=== PATIENT | female | born 1995 | race Caucasian/White ===

== ENCOUNTER 2018-12-06 10:45 | Emergency (ER) | payer OTHER, SELFPAY ==
[2018-12-06 10:57] VITALS: BP 112/77; PULSE 80; RESP 12; TEMP 36.6; O2SAT 100
[2018-12-06 11:27] LABS: Bacteria Urine Many (>30); RBC Urine 0-1/HPF (0-5/HPF); Squamous Epithelial Cell Urine 10-30 /HPF; WBC Urine 10-30/HPF (0-5/HPF)
--- NOTE | 2018-12-06 11:27 | ED_ITS ---
HPI - Nausea/Vomiting/Diarrhea General Chief complaint: Nausea/Vomiting/Diarrhea Stated complaint: NAUSEA, DIZZY Time Seen by Provider: 12/06/18 11:02 Source: patient Mode of arrival: ambulatory Limitations: no limitations History of Present Illness HPI Narrative: This is a 23-year-old female comes with complaint of dizziness. Patient states that she has felt a little bit nauseated this morning following that she started to feel like the room was sort of spinning. Patient states she has had this once before when she was really sick and had vomiting and diarrhea for several days in a row and had was unable to eat anything for several days. Patient states she has not had any vomiting, she has not had any diarrhea. She does have a headache, she does have any vision changes. She states movement of her head makes the symptoms worse. She states that she is not having any new weakness, numbness, difficulty with speech or movement. Patient denies any other symptoms currently. Related Data Previous Rx's Medication Instructions Recorded meclizine 25 mg PO TID #10 tab 12/06/18 Review of Systems Review of Systems ROS Unobtainable: All systems reviewed & are unremarkable except as noted in HPI and below Constitutional Denies chills, Denies fever(s), Denies headache(s) and Denies malaise Eyes Denies change in vision ENT Ears, Nose, Mouth, and Throat: Reports as per HPI, Reports vertigo, Denies otalgia, Denies headache(s), Denies nasal congestion, Denies neck pain and Denies other (facial droop) Cardiovascular Denies chest pain, Denies diaphoresis, Denies syncope, Denies irregular heart rhythm, Denies lightheadedness, Denies palpitations, Denies dyspnea, Denies dyspnea on exertion and Denies orthopnea Respiratory Denies change in phlegm color, Denies chest congestion, Denies cough, Denies dyspnea, Denies dyspnea on exertion and Denies wheezing Gastrointestinal Gastrointestinal: Denies abdominal pain, Denies change in bowel habits, Denies diarrhea, Denies nausea and Denies vomiting Genitourinary Denies hematuria, Denies flank pain, Denies urinary incontinence and Denies urinary urgency Musculoskeletal Denies neck pain Neurologic Reports vertigo, Denies syncope and Denies headache(s) Endocrine Denies palpitations Allergic/Immunologic Denies wheezing Exam Narrative Exam Narrative: GEN: well nourished, well appearing female, alert and oriented x 3, patient appears to be in mild distress. HEENT: Atraumatic, pupils are equal round reactive to light, extraocular movements are intact, no nystagmus appreciated on exam, nares are clear, TMs are clear with no fluid, there is no conjunctival pallor. Throat is clear without any exudates, erythema, tonsillar enlargement or uvular deviation, no facial droop. [place] on a causes patient's symptoms but no rotatory nystagmus. HEART: Regular rate and rhythm without murmur, clicks, rubs. Pulses are equal in upper and lower extremities LUNGS:Lungs clear to auscultation, no wheezes, rales, crackles, chest moves symmetrically ABD:bowel sounds normal, soft, non-tender, no guarding, rebound, rigidity, no masses noted, no hepatosplenomegaly MSCL: Non-tender, no muscle atrophy, muscles strength 5/5 upper and lower extremities, full range of motion, normal gait NEURO:CN 2-12 intact, sensation normal, reflexes 2/4 upper and lower extremities. finger nose finger test normal, heel galeas test normal Initial Vital Signs Initial Vital Signs: Vital Signs Temperature 97.9 F 12/06/18 10:57 Pulse Rate 80 12/06/18 10:57 Respiratory Rate 12 12/06/18 10:57 Blood Pressure 112/77 12/06/18 10:57 Pulse Oximetry 100 12/06/18 10:57 Course Orders Ordered: ED Orders 12/06/18 11:10 Urine Microscopic Stat Discontinued Medications Ondansetron HCl (Zofran Odt) 4 mg SL NOW ONE Stop: 12/06/18 11:56 Last Admin: 12/06/18 12:18 Dose: 4 mg Vital Signs - 8 hr 12/06/18 10:57 12/06/18 11:30 12/06/18 12:00 Temperature 97.9 F Pulse Rate 80 78 77 Respiratory Rate 12 18 11 L Blood Pressure 112/77 Blood Pressure [Left Arm] 118/80 119/77 Pulse Oximetry 100 100 100 MDM - Nausea/Vomiting/Diarrhea Lab Data Attestation: I reviewed the patient's lab results. Lab Results 12/06/18 Range/Units 11:10 Urine RBC 0-1/hpf (0-5/HPF) Urine WBC 10-30/hpf H (0-5/HPF) Ur Squamous Epith Cells 10-30 /hpf H Urine Bacteria Many (>30) H (None) Urine Mucus 2+ H (Negative) Ur Culture Indicated? Culture not indicate Micro UA Comment Point of Care Testing Test Results Negative Urine Dip Bedside Urine Glucose Negative Bedside Urine Bilirubin - Negative Bedside Urine Ketone - Negative Urine Specific [place] 1.030 Bedside Urine Occult Blood - Negative Bedside Urine pH 6.0 Bedside Urine Protein - Negative Bedside Urine Urobilinogen +/- 1mg Bedside Urine Nitrite - Negative Bedside Urine Leukocytes ++ 125 Esterase MDM Narrative Medical decision making narrative: I discussed the patient's findings. No acute neurologic changes that are concerning or unwarranted head CT or other further evaluation at this time. We did discuss that she should try some meclizine I did give her referral for ENT and/or her primary care to follow up if her symptoms are not improving. We did discuss signs and symptoms to watch for an abnormal findings that showed prompt her to return emergently. Discharge Plan Departure Patient Disposition: Home Clinical Impression: Vertigo Discharge Date/Time: 12/06/18 12:44 Interventions: ED Discharge Assessment Last Done: 12/06/18 12:43 Instructions: DI for Vertigo Activity Restrictions/Additional Instructions: Follow-up for recheck with your primary care provider or ENT the ears, nose, throat specialty physicians in the next 2-3 days if you're not having any improvement in symptoms. Referral is below. You may take meclizine 1-2 tablets every 8 hr as needed for symptoms. This medication can make you feel sleepy so do not drive, perform hazards activities or make any major decisions while taking it. Return to the emergency department for sudden severe headaches, vision changes, new weakness, numbness, dizziness or vertigo like symptoms that are rapidly worsening or make it difficult for you to walk safely. Do not gauge in work that requires balance, that is at heights or where you have risk of falling. Prescriptions: New meclizine 25 mg tablet 25 mg PO TID Qty: 10 RF: 0 Referrals: Tyler Amezquita MD [Physician] - Stand Alone Forms: Work Release Note
[2018-12-06 11:28] LABS: Mucus Urine 2+ (Negative)
[2018-12-06 11:30] VITALS: BP 118/80; PULSE 78; RESP 18; O2SAT 100
--- NOTE | 2018-12-06 11:37 | PC.NURSE ---
pt states she is dizzy, and not feeling well since today
[2018-12-06 12:00] VITALS: BP 119/77; PULSE 77; RESP 11; O2SAT 100
[2018-12-06] MEDS: ONDANSETRON 4 MG ODT SL (12:18)
== END 2018-12-06 12:44 | disposition home or self-care (01) ==
PROVIDERS: Emergency Provider Emergency Medicine
DX: R42 Dizziness and giddiness (principal)
CPT/HCPCS: 81003; 81015; 81025; 99282; 99283

== ENCOUNTER 2019-01-17 00:53 | Emergency (ER) | payer OTHER, SELFPAY ==
[2019-01-17 01:03] VITALS: BP 113/73; PULSE 78; RESP 16; TEMP 36.4; O2SAT 100; BMI 21.9
[2019-01-17] MEDS: SODIUM CHLORIDE 0.9% 500 ML 1000 ML IV (01:34)
[2019-01-17 01:36] LABS: Add Manual Diff / Slide Review NO; Basophils Absolute Auto 100 /uL (0-100); Basophils Percent Auto 0.9 % (0-2); Eosinophils Absolute Auto 100 /uL (0-450); Eosinophils Percent Auto 1.6 % (2-4); Hematocrit 41.4 % (36-46); Hemoglobin 14.2 g/dL (12.0-16.0); Lymphocytes Absolute Auto 1900 /uL (1100-4500); Lymphocytes Percent Auto 33.8 % (25-40); Mean Corpuscular HGB Conc 34.2 % (30-36); Mean Corpuscular Hemoglobin 31.1 PG (26-34); Mean Corpuscular Volume 90.8 fL (80-100); Monocytes Absolute Auto 400 /uL (0-900); Monocytes Percent Auto 7.1 % (3-14); Neutrophils Absolute Auto 3200 /uL (1500-7000); Neutrophils Percent Auto 56.6 % (50-75); Platelet Count 246 X10^3/uL (150-400); Red Blood Cell Count 4.56 X10^6/uL (4.0-5.2); Red Cell Distribution Width 12.2 % (11.6-14.8); White Blood Cell Count 5.6 X10^3/uL (4.5-11.0)
[2019-01-17 01:39] LABS: INR 1.1 (0.9-1.3); Prothrombin Time 12.2 SECONDS (10.1-12.7)
[2019-01-17 01:44] LABS: Alanine Aminotransferase 24 IU/L (9-52); Albumin 4.6 g/dL (3.5-5.0); Albumin Globulin Ratio 1.4 (1.0-2.8); Alkaline Phosphatase 65 U/L (38-126); Aspartate Aminotransferase 19 IU/L (14-36); BUN Creatinine Ratio 13.8 (6-22); Bilirubin Total 0.3 mg/dL (0.2-1.3); Blood Urea Nitrogen 11 mg/dL (7-17); Calcium 9.1 mg/dL (8.4-10.2); Carbon Dioxide 24 mmol/L (22-32); Chloride 107 mmol/L (98-107); Estimated Glomerular Filt Rate > 60.0 mL/min (>60); Globulin 3.4 g/dL (1.7-4.1); Glucose 92 mg/dL (70-100); HEMOLYSIS < 15 (0-50); Lipase 46 U/L (23-300); Sodium 142 mmol/L (137-145)
[2019-01-17 01:45] LABS: Lactate (Lactic Acid) 0.6 mmol/L (0.7-2.1)
--- NOTE | 2019-01-17 01:54 | ED.ABDPAIN ---
HPI - Abdominal Pain General Chief Complaint: Abdominal Pain Stated Complaint: nausea,diarrhea x5 days Time Seen by Provider: 01/17/19 00:55 Source: patient Mode of arrival: ambulatory Limitations: no limitations History of Present Illness HPI narrative: 23-year-old female nonsmoker with history of migraines and fungal infection on left great toe presents to the emergency department with 7 days of increasing frequency of loose stools and some right sided abdominal pain. She is nauseated but denies vomiting. She is not dizzy nor weak or lightheaded. She denies any chest pain or shortness of breath. She is taking to been a fine for this fungal infection and has concerns about liver involvement. She has had no fever or chills. She denies recent travel or antibiotic use. She denies exposure to ill persons. MD complaint: abdominal pain Onset (ago): day(s) Pain Consistency: intermittent Location: R flank Severity: mild Quality: cramping and aching Radiation: none Migration to: no migration Relieving factors: nothing Exacerbating factors: nothing Associated symptoms: nausea and diarrhea Related Data Previous Rx's Medication Instructions Recorded meclizine 25 mg PO TID #10 tab 12/06/18 ondansetron 4 mg PO TID-QID PRN #10 tab 01/17/19 Allergies Allergy/AdvReac Type Severity Reaction Status Date / Time No Known Drug Allergies Allergy Verified 01/17/19 01:06 Review of Systems Constitutional Denies chills, Denies fever(s), Denies lethargy and Denies weakness Eyes Denies change in vision, Denies eye discharge, Denies irritation and Denies loss of vision ENT Ears, Nose, Mouth, and Throat: Denies change in voice, Denies neck pain and Denies sore throat Cardiovascular Denies chest pain, Denies irregular heart rhythm, Denies lightheadedness, Denies palpitations, Denies dyspnea, Denies dyspnea on exertion and Denies orthopnea Respiratory Denies cough, Denies dyspnea, Denies dyspnea on exertion and Denies wheezing Gastrointestinal Gastrointestinal: Denies abdominal pain, Denies change in bowel habits, Reports diarrhea, Reports nausea and Denies vomiting Genitourinary Denies hematuria, Denies flank pain, Denies urinary incontinence and Denies urinary urgency Musculoskeletal Denies neck pain Integumentary/Breasts Denies pruritus, Denies erythema, Denies rash and Denies wounds Neurologic Denies confusion, Denies loss of vision and Denies weakness Psychiatric Denies anxiety, Denies confusion, Denies depression, Denies homicidal ideation and Denies suicidal ideation Endocrine Denies palpitations Hematologic/Lymphatic Denies easy bruising Allergic/Immunologic Denies wheezing PFSH Social History Smoking Status: Current every day smoker Social History Smoking Status: Current every day smoker Exam Narrative Exam Narrative: GENERAL: 23-year-old female is well-developed and in no obvious or significant distress HEAD: Atraumatic. Normocephalic. No temporal or scalp tenderness. EYES: Pupils equal round and reactive. Extraocular motions intact. No scleral icterus. No injection or drainage. ENT: Nose without bleeding, purulent drainage or septal hematoma. Throat without erythema, tonsillar hypertrophy or exudate. Uvula midline. Airway patent. NECK: Trachea midline. No JVD or lymphadenopathy. Supple, nontender, no meningeal signs. CARDIOVASCULAR: Regular rate and rhythm without murmurs, gallops, or rubs. RESPIRATORY: Clear to auscultation. Breath sounds equal bilaterally. No wheezes, rales, or rhonchi. GASTROINTESTINAL: Abdomen soft, mild R sided tenderness, nondistended. No hepato-splenomegaly, or palpable masses. No guarding. EXTREMITIES: No clubbing, cyanosis, or edema. No joint tenderness, effusion, or edema noted. BACK: Nontender without deformity or crepitance. No flank tenderness. NEURO: AOx3. SKIN: No rash or erythema. Initial Vital Signs Initial Vital Signs: Vital Signs Temperature 97.5 F L 01/17/19 01:03 Pulse Rate 78 01/17/19 01:03 Respiratory Rate 16 01/17/19 01:03 Blood Pressure 113/73 01/17/19 01:03 Pulse Oximetry 100 01/17/19 01:03 Course Orders Ordered: ED Orders 01/17/19 01:24 Complete Blood Count AUTO DIFF Stat Comprehensive Metabolic Panel Stat Lactate (Lactic Acid) Stat Lipase Stat Prothrombin Time INR Stat 01/17/19 02:45 Urine Culture Stat Urine Microscopic Stat Discontinued Medications Al Hydrox/Mg Hydrox/Simethicone 20 ml/ Lidocaine HCl 15 ml 0 ml PO NOW ONE Stop: 01/17/19 02:31 Last Admin: 01/17/19 04:18 Dose: 35 ml Sodium Chloride (Normal Saline 0.9%) 500 mls @ 1,000 mls/hr IV BOLUS ONE Stop: 01/17/19 01:36 Last Infusion: 01/17/19 02:35 Dose: 0 mls/hr Infusion: 01/17/19 02:35 Dose: 0 mls/hr Admin: 01/17/19 01:34 Dose: 1,000 mls/hr Sodium Chloride (Normal Saline 0.9%) 1,000 mls @ 1,000 mls/hr IV BOLUS ONE Stop: 01/17/19 03:29 Last Infusion: 01/17/19 04:21 Dose: 0 mls/hr Admin: 01/17/19 02:35 Dose: 1,000 mls/hr Ondansetron HCl (Zofran) 4 mg IV Q4HR PRN PRN Reason: Nausea And Vomiting Last Admin: 01/17/19 02:36 Dose: 4 mg Pantoprazole Sodium (Protonix) 40 mg IV NOW ONE Stop: 01/17/19 02:31 Last Admin: 01/17/19 02:36 Dose: 40 mg Vital Signs - 8 hr 01/17/19 01:03 01/17/19 02:58 01/17/19 04:02 Temperature 97.5 F L Pulse Rate 78 77 73 Respiratory Rate 16 15 Blood Pressure 113/73 Blood Pressure [Left Arm] 105/67 108/61 Pulse Oximetry 100 100 100 01/17/19 04:41 Temperature 97.6 F Pulse Rate 74 Respiratory Rate 14 Blood Pressure 100/59 L Blood Pressure [Left Arm] Pulse Oximetry 100 MDM - Abdominal Pain Lab Data Result diagrams: 01/17/19 01:24 01/17/19 01:24 Lab Results 01/17/19 01/17/19 01/17/19 Range/Units 01:24 01:24 01:24 WBC 5.6 (4.5-11.0) X10^3/uL RBC 4.56 (4.0-5.2) X10^6/uL Hgb 14.2 (12.0-16.0) g/dL Hct 41.4 (36-46) % MCV 90.8 (80-100) fL MCH 31.1 (26-34) PG MCHC 34.2 (30-36) % RDW 12.2 (11.6-14.8) % Plt Count 246 (150-400) X10^3/uL Neut % (Auto) 56.6 (50-75) % Lymph % (Auto) 33.8 (25-40) % [place] % (Auto) 7.1 (3-14) % Eos % (Auto) 1.6 L (2-4) % Baso % (Auto) 0.9 (0-2) % Neut # (Auto) 3200 (0705-5930) /uL Lymph # (Auto) 1900 (5714-7664) /uL [place] # (Auto) 400 (0-900) /uL Eos # (Auto) 100 (0-450) /uL Baso # (Auto) 100 (0-100) /uL PT 12.2 (10.1-12.7) SECONDS INR 1.1 (0.9-1.3) Sodium 142 (137-145) mmol/L Potassium 4.0 (3.4-5.1) mmol/L Chloride 107 (98-107) mmol/L Carbon Dioxide 24 (22-32) mmol/L BUN 11 (7-17) mg/dL Creatinine 0.80 (0.52-1.04) mg/dL Estimated GFR > 60.0 (>60) mL/min BUN/Creatinine Ratio 13.8 (6-22) Glucose 92 (70-100) mg/dL Lactate (0.7-2.1) mmol/L Calcium 9.1 (8.4-10.2) mg/dL Total Bilirubin 0.3 (0.2-1.3) mg/dL AST 19 (14-36) IU/L ALT 24 (9-52) IU/L Alkaline Phosphatase 65 (38-126) U/L Total Protein 8.0 (6.3-8.2) g/dL Albumin 4.6 (3.5-5.0) g/dL Globulin 3.4 (1.7-4.1) g/dL Albumin/Globulin Ratio 1.4 (1.0-2.8) Lipase 46 (23-300) U/L Urine RBC (0-5/HPF) Urine WBC (0-5/HPF) Ur Squamous Epith Cells Urine Bacteria (None) Urine Mucus (Negative) Ur Culture Indicated? 01/17/19 01/17/19 Range/Units 01:24 02:45 WBC (4.5-11.0) X10^3/uL RBC (4.0-5.2) X10^6/uL Hgb (12.0-16.0) g/dL Hct (36-46) % MCV (80-100) fL MCH (26-34) PG MCHC (30-36) % RDW (11.6-14.8) % Plt Count (150-400) X10^3/uL Neut % (Auto) (50-75) % Lymph % (Auto) (25-40) % [place] % (Auto) (3-14) % Eos % (Auto) (2-4) % Baso % (Auto) (0-2) % Neut # (Auto) (6541-8654) /uL Lymph # (Auto) (9720-6431) /uL [place] # (Auto) (0-900) /uL Eos # (Auto) (0-450) /uL Baso # (Auto) (0-100) /uL PT (10.1-12.7) SECONDS INR (0.9-1.3) Sodium (137-145) mmol/L Potassium (3.4-5.1) mmol/L Chloride (98-107) mmol/L Carbon Dioxide (22-32) mmol/L BUN (7-17) mg/dL Creatinine (0.52-1.04) mg/dL Estimated GFR (>60) mL/min BUN/Creatinine Ratio (6-22) Glucose (70-100) mg/dL Lactate 0.6 L (0.7-2.1) mmol/L Calcium (8.4-10.2) mg/dL Total Bilirubin (0.2-1.3) mg/dL AST (14-36) IU/L ALT (9-52) IU/L Alkaline Phosphatase (38-126) U/L Total Protein (6.3-8.2) g/dL Albumin (3.5-5.0) g/dL Globulin (1.7-4.1) g/dL Albumin/Globulin Ratio (1.0-2.8) Lipase (23-300) U/L Urine RBC None seen (0-5/HPF) Urine WBC 1-5/hpf (0-5/HPF) Ur Squamous Epith Cells 1-5 /hpf D Urine Bacteria Moderate (10-30) H (None) Urine Mucus 2+ H (Negative) Ur Culture Indicated? Specimen cultured Point of care testing: Urine Dip Bedside Urine Glucose Negative Bedside Urine Bilirubin + 1 Bedside Urine Ketone +/- 5 Urine Specific [place] 1.030 Bedside Urine Occult Blood - Negative Bedside Urine pH 6.0 Bedside Urine Protein +/- 15 Bedside Urine Urobilinogen 1+ 2mg Bedside Urine Nitrite - Negative Bedside Urine Leukocytes - Negative Esterase MDM Narrative Medical decision making narrative: Multiple etiologies for patient's symptoms considered including: [Gallbladder disease, hepatitis,problems from ongoing use of terbinafine, gastroenteritis vs. other] Patient's symptoms improved or duration of stay with above-stated therapies. Findings and discharge diagnosis discussed with patient/family followed by verbalization of understanding Return precautions discussed with patient/family whom verbalize understanding. Discharge Plan Departure Patient Disposition: Home Clinical Impression: Abdominal pain Qualifiers: Abdominal location: right upper quadrant Qualified Code(s): R10.11 - Right upper quadrant pain Discharge Date/Time: 01/17/19 04:46 Interventions: ED Discharge Assessment Last Done: 01/17/19 04:41 Instructions: Diarrhea, DI for Abdominal Pain-Adult Activity Restrictions/Additional Instructions: 1. Drink plenty of fluids with frequent small sips. 2. For the next 24 hours a clear liquid diet is advised. After that please employ a brat diet which would include bananas, rice, apples, toast. 3. Please take medications as directed. 4. Please follow-up with your doctor in the next 1-2 days. Call the office for an appointment. 5. Please return to the emergency Department for any worsening or persistent symptoms, such as increasing pain or fever. Prescriptions: New ondansetron 4 mg tablet,disintegrating 4 mg PO TID-QID PRN (Reason: nausea and vomiting) Qty: 10 RF: 0 No Action meclizine 25 mg tablet 25 mg PO TID Qty: 10 RF: 0 Stand Alone Forms: Work Release Note
[2019-01-17] MEDS: SODIUM CHLORIDE 0.9% 1,000 ML 1000 ML IV (02:35)
[2019-01-17] MEDS: PANTOPRAZOLE 40 MG VIAL IV (02:36)
[2019-01-17] MEDS: ONDANSETRON 4 MG/2 ML INJ IV (02:36)
--- NOTE | 2019-01-17 02:36 | PC.NURSE ---
1 liter initial bolus NS given IV per verbal order from Dr Espinoza
[2019-01-17 02:58] VITALS: BP 105/67; PULSE 77; RESP 15; O2SAT 100
[2019-01-17 03:01] LABS: RBC Urine None Seen (0-5/HPF)
[2019-01-17 03:10] LABS: Bacteria Urine Moderate (10-30); Culture Indicated Urine Specimen Cultured; Mucus Urine 2+ (Negative); Squamous Epithelial Cell Urine 1-5 /HPF; WBC Urine 1-5/HPF (0-5/HPF)
[2019-01-17 04:02] VITALS: BP 108/61; PULSE 73; O2SAT 100
[2019-01-17] MEDS: MAG HYDROX/ALUMINUM/SIMETH SUS 20 ML, LIDOCAINE VISCOUS 2% 15 ML PO (04:18)
[2019-01-17 04:41] VITALS: BP 100/59; PULSE 74; RESP 14; TEMP 36.4; O2SAT 100
== END 2019-01-17 04:46 | disposition home or self-care (01) ==
PROVIDERS: Emergency Provider Emergency Medicine
DX: R10.11 Right upper quadrant pain (principal)
CPT/HCPCS: 36591; 80053; 81003; 81015; 83605; 83690; 85025; 85610; 87077; 87086; 96361; 96374; 96375; 99283; 99284; C9113; J2405

== ENCOUNTER 2019-04-19 11:47 | Emergency (ER) | payer OTHER, SELFPAY ==
[2019-04-19 12:07] VITALS: BP 122/75; PULSE 82; RESP 16; TEMP 36.8; O2SAT 100; BMI 21.9
[2019-04-19 12:18] LABS: Appearance Urine UA SL CLOUDY; Bilirubin Urine UA NEGATIVE (NEGATIVE); Color Urine UA YELLOW; Glucose Urine UA NEGATIVE (Negative); Ketones Urine UA NEGATIVE (NEGATIVE); Leukocyte Esterase Urine UA 2+ (NEGATIVE); Nitrite Urine UA NEGATIVE (Negative); Occult Blood Urine UA 2+ (Negative); Protein Urine UA NEGATIVE (Negative); Specific Gravity Urine UA <=1.005 (1.000-1.035); Urobilinogen Urine UA 0.2 E.U./dL (0.2); pH Urine UA 6.5 (4.5-8.0)
[2019-04-19 12:29] LABS: RBC Urine 1-5/HPF (0-5/HPF)
[2019-04-19 12:30] LABS: Bacteria Urine Few (2-10); Squamous Epithelial Cell Urine 0-1 /HPF (0-5/HPF); WBC Urine 30-100/HPF (0-5/HPF)
[2019-04-19 12:31] LABS: Culture Indicated Urine Specimen Cultured
--- NOTE | 2019-04-19 12:39 | ED.FEMALEGU ---
HPI - Female Genitourinary <Chapis Last PA-C - Last Filed: 04/19/19 18:29> General Chief complaint: Urogenital-Female Stated complaint: UTI OR UV Time Seen by Provider: 04/19/19 12:03 Source: patient Mode of arrival: ambulatory Limitations: no limitations History of Present Illness HPI Narrative: This 24-year-old female complains of onset of urinary symptoms 2 days ago, with dysuria, along with some urgency and frequency. She states that it went away briefly, but back today and quite painful. She denies hematuria. She denies fever, chills, sweats, nausea, vomiting, or new flank pain. She denies any vaginal discharge or STD concerns. She denies possibility of as her long-term significant other has had vasectomy. She denies any other new complaints on systems review Related Data Previous Rx's Medication Instructions Recorded phenazopyridine [Pyridium] 200 mg PO Q8H PRN 3 Days #6 tab 04/19/19 sulfamethoxazole-trimethoprim 1 tab PO BID #10 tab 04/19/19 [Bactrim DS] Allergies Allergy/AdvReac Type Severity Reaction Status Date / Time No Known Drug Allergies Allergy Verified 04/19/19 12:07 Review of Systems <Chapis Last PA-C - Last Filed: 04/19/19 18:29> Review of Systems ROS Unobtainable: All systems reviewed & are unremarkable except as noted in HPI and below PFSH <Chapis Last PA-C - Last Filed: 04/19/19 18:29> Medical History (Updated 04/19/19 @ 12:57 by Chapis Last PA-C) Migraine headache (Chronic) Surgical History (Updated 04/19/19 @ 12:57 by Chapis Last PA-C) Status post wisdom tooth extraction (Resolved) Social History Smoking Status: Current every day smoker Social History Smoking Status: Current every day smoker Exam <Chapis Last PA-C - Last Filed: 04/19/19 18:29> Narrative Exam Narrative: GENERAL APPEARANCE: Patient sitting comfortably, in no distress. LUNGS: Clear to auscultation bilaterally. HEART: Rate and rhythm regular without murmur, normal S1 and S2, no S3 or S4. ABDOMEN: Soft, ND, +BS x 4 quadrants, no CVAT. Mild localized suprapubic tenderness, otherwise no abdominal TTP. Initial Vital Signs Initial Vital Signs: Vital Signs Temperature 98.2 F 04/19/19 12:07 Pulse Rate 82 04/19/19 12:07 Respiratory Rate 16 04/19/19 12:07 Blood Pressure 122/75 04/19/19 12:07 Pulse Oximetry 100 04/19/19 12:07 <Vandana Luevano MD - Last Filed: 04/21/19 08:34> Initial Vital Signs Initial Vital Signs: Vital Signs Temperature 98.2 F 04/19/19 12:07 Pulse Rate 82 04/19/19 12:07 Respiratory Rate 16 04/19/19 12:07 Blood Pressure 122/75 04/19/19 12:07 Pulse Oximetry 100 04/19/19 12:07 Course <Chapis Last PA-C - Last Filed: 04/19/19 18:29> Orders Ordered: ED Orders 04/19/19 12:15 Urinalysis and Microscopic Stat Urine Culture Stat Vital Signs - 8 hr 04/19/19 12:07 Temperature 98.2 F Pulse Rate 82 Respiratory Rate 16 Blood Pressure 122/75 Pulse Oximetry 100 <Vandana Luevano MD - Last Filed: 04/21/19 08:34> Orders Ordered: ED Orders 04/19/19 12:15 Urinalysis and Microscopic Stat Urine Culture Stat Vital Signs - 8 hr 04/19/19 12:07 Temperature 98.2 F Pulse Rate 82 Respiratory Rate 16 Blood Pressure 122/75 Pulse Oximetry 100 MDM - Female Genitourinary <Chapis Last PA-C - Last Filed: 04/19/19 18:29> Lab Data Lab Results 04/19/19 Range/Units 12:15 Urine Color Yellow Urine Appearance Sl cloudy Urine pH 6.5 (4.5-8.0) Ur Specific [place] <=1.005 (1.000-1.035) Urine Protein Negative (Negative) Urine Glucose (UA) Negative (Negative) g/dL Urine Ketones Negative (NEGATIVE) Urine Occult Blood 2+ H (Negative) Urine Nitrate Negative (Negative) Urine Bilirubin Negative (NEGATIVE) Urine Urobilinogen 0.2 (0.2) E.U./dL Ur Leukocyte Esterase 2+ H (NEGATIVE) Urine RBC 1-5/hpf (0-5/HPF) Urine WBC 30-100/hpf H (0-5/HPF) Ur Squamous Epith Cells 0-1 /hpf (0-5/HPF) Urine Bacteria Few (2-10) H (None) Ur Culture Indicated? Specimen cultured <Vandana Luevano MD - Last Filed: 04/21/19 08:34> Lab Data Lab Results 04/19/19 Range/Units 12:15 Urine Color Yellow Urine Appearance Sl cloudy Urine pH 6.5 (4.5-8.0) Ur Specific [place] <=1.005 (1.000-1.035) Urine Protein Negative (Negative) Urine Glucose (UA) Negative (Negative) g/dL Urine Ketones Negative (NEGATIVE) Urine Occult Blood 2+ H (Negative) Urine Nitrate Negative (Negative) Urine Bilirubin Negative (NEGATIVE) Urine Urobilinogen 0.2 (0.2) E.U./dL Ur Leukocyte Esterase 2+ H (NEGATIVE) Urine RBC 1-5/hpf (0-5/HPF) Urine WBC 30-100/hpf H (0-5/HPF) Ur Squamous Epith Cells 0-1 /hpf (0-5/HPF) Urine Bacteria Few (2-10) H (None) Ur Culture Indicated? Specimen cultured Discharge Plan Departure Patient Disposition: Home Clinical Impression: Urinary tract infection Qualifiers: Urinary tract infection type: acute cystitis Hematuria presence: without hematuria Qualified Code(s): N30.00 - Acute cystitis without hematuria Discharge Date/Time: 04/19/19 13:04 Interventions: ED Discharge Assessment Last Done: 04/19/19 13:04 Instructions: DI for Urinary Tract Infection (UTI) Activity Restrictions/Additional Instructions: As we talked about, you should see your PCP if not better in a couple of days (culture should be back around then). You should return if you have any acutely worsening symptoms in the interim, i.e. high fever, profuse vomiting, flank pain. [facility] [place] for you as well as urinary pain reliever to start right away. Take the 1st dose as soon as you pick it up and a 2nd toes just before bedtime tonight. Prescriptions: New phenazopyridine [Pyridium] 200 mg tablet 200 mg PO Q8H PRN (Reason: urinary pain) 3 Days Qty: 6 RF: 0 sulfamethoxazole-trimethoprim [Bactrim DS] 800-160 mg tablet 1 tab PO BID Qty: 10 RF: 0 Referrals: [facility] [Provider Group]
== END 2019-04-19 13:04 | disposition home or self-care (01) ==
PROVIDERS: Emergency Provider Internal Medicine
DX: N30.00 Acute cystitis without hematuria (principal)
CPT/HCPCS: 81001; 87086; 99282; 99283

== ENCOUNTER 2020-07-27 07:10 | Emergency (ER) | payer OTHER, SELFPAY ==
[2020-07-27 07:20] VITALS: BP 119/76; PULSE 85; RESP 16; TEMP 36.9; O2SAT 99; BMI 21.9
--- NOTE | 2020-07-27 07:35 | ED_ITS ---
HPI - Female Genitourinary General Chief complaint: Urogenital-Female Stated complaint: Thinks she has a UTI.Burning feeling when she pees Time Seen by Provider: 07/27/20 07:18 Source: patient Mode of arrival: Ambulatory Limitations: no limitations History of Present Illness HPI Narrative: Patient is a 25-year-old female who presents with symptoms of UTI. She states it started 3 days ago. She has severe dysuria urinary frequency. She has been trying to flush it out with water. She denies any flank pain nausea or fever. MD Complaint: UTI Onset (ago): day(s) (4) Related Data Previous Rx's Medication Instructions Recorded sulfamethoxazole-trimethoprim 1 tab PO BID #10 tab 04/19/19 [Bactrim DS] phenazopyridine [Pyridium] 200 mg PO TID PRN #6 tab 07/27/20 sulfamethoxazole-trimethoprim 1 tab PO BID 5 Days #10 tab 07/27/20 [Bactrim DS] Allergies Allergy/AdvReac Type Severity Reaction Status Date / Time No Known Drug Allergies Allergy Verified 04/19/19 12:07 Review of Systems Review of Systems Narrative: GENERAL: Denies chills, fatigue, malaise, fever, sweats, travel HEENT: Denies sinus pain, ear pain, sore throat, difficulty swallowing, neck faith n RESPIRATORY: Denies dyspnea, cough, wheezing, hemoptysis, sputum. CARDIOVASCULAR: Denies chest pain, palpitations, orthopnea, edema GASTROINTESTINAL: Denies nausea, vomiting, abdominal pain, diarrhea, constipation, melena. : See HPI MUSCULOSKELETAL: Denies weakness, joint pain, or bony pain SKIN: No rash, no erythema, no pruritus NEUROLOGIC: Denies weakness, dizziness, headache, numbness, change in speech, confusion PSYCHIATRIC: No concerning psychosocial issues. 12 point review of systems is negative except for those stated above and HPI Patient History Medical History Migraine headache (Chronic) Surgical History Status post wisdom tooth extraction (Resolved) alcohol intake frequency: 0-2 drinks per day Substance Use Type: does not use Exam Initial Vital Signs Initial Vital Signs: Vital Signs Temperature 98.5 F 07/27/20 07:20 Pulse Rate 85 07/27/20 07:20 Respiratory Rate 16 07/27/20 07:20 Blood Pressure 119/76 07/27/20 07:20 Pulse Oximetry 99 07/27/20 07:20 GENERAL: Well-appearing, well-nourished and in no acute distress. HEENT: Head atraumatic,EOMI, pupils reactive, CARDIOVASCULAR: Regular rate and rhythm without murmurs, rubs or gallops. RESPIRATORY: Breath sounds equal bilaterally, no wheezes rales or rhonchi. ABDOMEN: Soft, nontender. Normoactive bowel sounds all 4 quadrants. No guarding or rebound. : No CVA tenderness EXTREMITIES: Normal range of motion, no clubbing or edema. Neurovascularly intact NEUROLOGICAL: Alert and oriented x4.Normal gait and speech. SKIN: Warm, dry, no laceration, no petechiae, no rashes or lesions. Course Orders Ordered: ED Orders 07/27/20 07:40 Urine Culture Stat Urine Microscopic Stat Vital Signs Vital signs: Vital Signs - 8 hr 07/27/20 07:20 Temperature 98.5 F Pulse Rate 85 Respiratory Rate 16 Blood Pressure 119/76 Pulse Oximetry 99 MDM - Female Genitourinary Lab Data Attestation: I reviewed the patient's lab results. Labs: Lab Results 07/27/20 Range/Units 07:40 Urine RBC 0-1/hpf (0-5/HPF) Urine WBC 30-100/hpf H (0-5/HPF) Urine Bacteria Few (2-10) H (None) Ur Culture Indicated? Specimen cultured Point of Care Testing Test Results Negative Urine Dip Bedside Urine Glucose Negative Bedside Urine Bilirubin - Negative Bedside Urine Ketone - Negative Urine Specific [place] 1.005 Bedside Urine Occult Blood +++ Bedside Urine pH 6.0 Bedside Urine Protein - Negative Bedside Urine Urobilinogen - Negative Bedside Urine Nitrite - Negative Bedside Urine Leukocytes +++ 500 Esterase Discharge Plan Departure Patient Disposition: Home Clinical Impression: Urinary tract infection Qualifiers: Urinary tract infection type: acute cystitis Hematuria presence: with hematuria Qualified Code(s): N30.01 - Acute cystitis with hematuria Discharge Date/Time: 07/27/20 07:47 Instructions: DI for Urinary Tract Infection (UTI) Activity Restrictions/Additional Instructions: *You have been diagnosed with UTI *What to do: You should start to feel better in the next 1-2 days at continue to drink fluids *Continue to take medications as directed--> SENT TO [facility] [place] Bactrim 1 tablet twice a day for 5 days Pyridium 1 tablet 3 times a day only if needed for painful urination *Follow up with your primary care provider in 2-3 days *Return to ER if you should have a fever persistent vomiting flank pain or any new, worsening or concerning symptoms Prescriptions: New sulfamethoxazole-trimethoprim [Bactrim DS] 800-160 mg tablet 1 tab PO BID 5 Days Qty: 10 RF: 0 phenazopyridine [Pyridium] 200 mg tablet 200 mg PO TID PRN (Reason: pain) Qty: 6 RF: 0 No Action sulfamethoxazole-trimethoprim [Bactrim DS] 800-160 mg tablet 1 tab PO BID Qty: 10 RF: 0 Referrals: [facility] [Outside]
[2020-07-27 07:57] LABS: Bacteria Urine Few (2-10); Culture Indicated Urine Specimen Cultured; RBC Urine 0-1/HPF (0-5/HPF); WBC Urine 30-100/HPF (0-5/HPF)
== END 2020-07-27 07:47 | disposition home or self-care (01) ==
PROVIDERS: Emergency Provider Emergency Medicine
DX: N30.01 Acute cystitis with hematuria (principal)
CPT/HCPCS: 81003; 81015; 81025; 87077; 87086; 87186; 99282

== ENCOUNTER 2020-12-19 08:38 | Emergency (ER) | payer OTHER, SELFPAY ==
[2020-12-19 08:45] VITALS: BP 131/80; PULSE 86; RESP 18; TEMP 36.9; O2SAT 99; BMI 23.5
--- NOTE | 2020-12-19 08:50 | DI.RAD.S_ITS ---
PROCEDURE: XR FINGER RT MIN 2V INDICATIONS: crush injury to tip of right thumb TECHNIQUE: AP hand, 2 views of the thumb acquired. COMPARISON: None. FINDINGS: Bones: No fractures or dislocations. No suspicious bony lesions. Soft tissues: No suspicious soft tissue calcifications. IMPRESSION: No evidence acute bony abnormality of the right thumb Dictated by: Daniel Juarez M.D. on 12/19/2020 at 9:13 Approved by: Daniel Juarez M.D. on 12/19/2020 at 9:13
[2020-12-19] MEDS: ACETAMINOPHEN 325 MG TABLET 650 MG PO (09:17)
[2020-12-19] MEDS: OXYCODONE/ACETAMINOPHEN 5/325 TABLET 1 TAB PO (09:17)
--- NOTE | 2020-12-19 09:18 | ED_ITS ---
HPI - Extremity Injury (Upper) General Chief Complaint: Extremity Injury, Upper Stated Complaint: right hand thumb laceration this am Time Seen by Provider: 12/19/20 09:18 Source: patient Mode of arrival: Ambulatory Limitations: no limitations History of Present Illness HPI narrative: 25-year-old female comes in with complaint of a crush injury to her right distal thumb. Patient works on the [employer], she works on [employer] in a in which is the shape of a hook was activated while she was working and her thumb was caught between 2 pieces of metal which were then retracted. Patient has sore puncture wound on the pad of the thumb. She has significant pain of the distal thumb. As well as bruising of the nail and skin. Patient denies any other injuries. She states she is up-to-date on her tetanus. She denies any other medical issues. No allergies to medications. She does have sensation to light touch. She is able to flex at the distal joint although it is quite uncomfortable. Related Data Previous Rx's Medication Instructions Recorded sulfamethoxazole-trimethoprim 1 tab PO BID #10 tab 04/19/19 [Bactrim DS] phenazopyridine [Pyridium] 200 mg PO TID PRN #6 tab 07/27/20 cephalexin [Keflex] 500 mg PO QID #40 cap 12/19/20 oxycodone 5 mg PO TID PRN #10 tab 12/19/20 Allergies Allergy/AdvReac Type Severity Reaction Status Date / Time No Known Drug Allergies Allergy Verified 04/19/19 12:07 Review of Systems Review of Systems ROS Unobtainable: All systems reviewed & are unremarkable except as noted in HPI and below Patient History Medical History (Updated 12/19/20 @ 09:48 by Beryl Lawrence DO) Migraine headache Surgical History Status post wisdom tooth extraction Social History Smoking Status: Current every day smoker Smoking Status: Current every day smoker tobacco type: vaping alcohol intake frequency: 0-2 drinks per day Substance Use Type: does not use Exam Narrative Exam Narrative: GENERAL: Alert and oriented x three, well-nourished female in moderate distress. HEENT: Head normocephalic, atraumatic, EOMI, pupils reactive, face symmetric, moist mucous membranes NECK: Supple, full range of motion CARDIOVASCULAR: Regular rate and rhythm without murmurs, rubs or gallops. RESPIRATORY: Breath sounds equal bilaterally, no wheezes rales or rhonchi. EXTREMITIES: Normal range of motion although patient has mildly decreased at the distal joint of the right thumb likely secondary to pain, but able to fully move with passive range of motion. Patient has swelling of the distal thumb. Cap refills less than 2 seconds. There is some mild ecchymosis on the lateral nail but no subungual hematoma appreciated, there is also ecchymosis throughout the distal thumb. Patient does not have any bony tenderness at the distal joint or more proximally. She has full range of motion throughout the rest of her hand. 2+ radial pulse patient does have a puncture wound on the pad of the thumb skin is otherwise intact, area does appear to be dirty with grease. Neurovascularly intact NEUROLOGICAL: Cranial nerves II through XII grossly intact. Moving all extremities SKIN: Warm, dry, no petechiae, no rashes or lesions. Initial Vital Signs Initial Vital Signs: Vital Signs Temperature 98.5 F 12/19/20 08:45 Pulse Rate 86 12/19/20 08:45 Respiratory Rate 18 12/19/20 08:45 Blood Pressure 131/80 12/19/20 08:45 Pulse Oximetry 99 12/19/20 08:45 Course Orders Ordered: Discontinued Medications Acetaminophen (Acetaminophen 325 Mg Tablet) 650 mg PO NOW ONE Stop: 12/19/20 08:51 Last Admin: 12/19/20 09:17 Dose: 650 mg Documented by: LEE Cephalexin HCl (Cephalexin 250 Mg Capsule) 500 mg PO NOW ONE Stop: 12/19/20 09:40 Last Admin: 12/19/20 09:47 Dose: 500 mg Documented by: LEDY Oxycodone/Acetaminophen (Oxycodone/Acetaminophen 5/325 Tablet) 1 tab PO NOW ONE Stop: 12/19/20 08:51 Last Admin: 12/19/20 09:17 Dose: 1 tab Documented by: LEE Vital Signs Vital signs: Vital Signs - 8 hr 12/19/20 08:45 Temperature 98.5 F Pulse Rate 86 Respiratory Rate 18 Blood Pressure 131/80 Pulse Oximetry 99 MDM - Extremity Injury (Upper) Imaging Data Extremity x-ray #1: Radiologist's Impression: [address] [id number] ReportSigned Patient: Kira Vigil LMR#: [id number]: [id number]:[id number]/Sex: 25 / FDate of Service: 12/19/20Loc: EDAccession Number: [id number] Procedure: XR finger RT min 2V Ordering Provider: Beryl Lawrence D.O. PROCEDURE: XR FINGER RT MIN 2V INDICATIONS: crush injury to tip of right thumb TECHNIQUE: AP hand, 2 views of the thumb acquired. COMPARISON: None. FINDINGS: Bones: No fractures or dislocations. No suspicious bony lesions. Soft tissues: No suspicious soft tissue calcifications. IMPRESSION: No evidence acute bony abnormality of the right thumb Dictated by: Daniel Juarez M.D. on 12/19/2020 at 9:13 Approved by: Daniel Juarez M.D. on 12/19/2020 at 9:13 [facility] Narrative Medical decision making narrative: 25-year-old female with a puncture/crush injury. There is no injection of material into the thumb. No foreign body or obvious fracture on x-ray. Area was cleansed in the department. Patient was started on oral antibiotics. Tetanus is up-to-date. Patient was given referral for Ortho she is somewhat high risk for infection. Patient was given Percocet and ibuprofen the department with a short course of pain medication. Strict return precautions were discussed. Discharge Plan Departure Patient Disposition: Home Clinical Impression: Puncture wound of right thumb, Crush injury to thumb Instructions: DI for Crush Injury Activity Restrictions/Additional Instructions: Follow-up with Orthopedic surgery or your primary care physician the next 2-3 days for recheck. Take antibiotics until completely gone Prescriptions to [facility] You may take Tylenol up to a 1000 mg every 8 hours and or ibuprofen up to 800 mg every 8 hours. If this is not adequate for pain control you may take narcotic pain medication in addition to these 2 medications. These medications can make you sleepy do n ot drive, perform hazardous activities or make any major decisions while taking them. Narcotic pain medication will also make you constipated so make sure to drink plenty of water and take a stool softener 1-2 times daily until stools are soft. Wound Care: Keep wound(s) clean and dry. Wash daily with soap and water only. Do not use over the counter products (alcohol or peroxide)on the wounds unless instructed by a physician. If wound condition worsens (increased/expanding redness, developing fluid blisters, or worsening pain), either contact your doctor for an urgent re- assessment , or return to the Emergency Department. Return to the Emergency Department for any new or worsening symptoms. Return if fever greater than 100.4 Fahrenheit, increased swelling, increasing pain or worsening symptoms such as increased discharge or spreading redness, loss of sensation, pallor cyanosis, rapidly worsening swelling or any other new or concerning symptoms. Prescriptions: New cephalexin [Keflex] 500 mg capsule 500 mg PO QID Qty: 40 RF: 0 oxycodone 5 mg tablet 5 mg PO TID PRN (Reason: pain) Qty: 10 RF: 0 No Action sulfamethoxazole-trimethoprim [Bactrim DS] 800-160 mg tablet 1 tab PO BID Qty: 10 RF: 0 phenazopyridine [Pyridium] 200 mg tablet 200 mg PO TID PRN (Reason: pain) Qty: 6 RF: 0 Referrals: Amy Penaloza MD [Physician] -
[2020-12-19] MEDS: cephALEXin 250 MG CAPSULE 500 MG PO (09:47)
[2020-12-19 10:05] VITALS: BP 132/76; PULSE 72; RESP 12; O2SAT 100
== END 2020-12-19 10:05 | disposition home or self-care (01) ==
PROVIDERS: Emergency Provider Emergency Medicine
DX: S61.031A Puncture wound without foreign body of right thumb without damage to nail, initial encounter (principal); S67.01XA Crushing injury of right thumb, initial encounter; W23.0XXA Caught, crushed, jammed, or pinched between moving objects, initial encounter
CPT/HCPCS: 73140; 99283

== ENCOUNTER 2021-05-20 07:25 | Emergency (ER) | payer OTHER, SELFPAY ==
[2021-05-20 07:25] VITALS: BP 116/77; PULSE 74; RESP 16; TEMP 35.8; O2SAT 99
--- NOTE | 2021-05-20 07:43 | ED.HA ---
HPI - Headache General Chief Complaint: Headache Stated Complaint: migrane,dehydration Time Seen by Provider: 05/20/21 07:43 History of Present Illness HPI Narrative: patient is a 26-year-old female who does have a history of mild headaches but presents today with severe headache. She says it started gradually yesterday after being in the heat of more than 100 degrees. has started behind her eyes they started throbbing and now involves her whole head. She feels nauseous at times she is quite sensitive to light but not to noise. No neck pain or fever. Location: frontal and retro-orbital Severity: moderate Related Data Previous Rx's Medication Instructions Recorded sulfamethoxazole 800 1 tab PO BID #10 tab 04/19/19 mg-trimethoprim 160 mg tablet (Bactrim DS) phenazopyridine 200 mg tablet 200 mg PO TID PRN #6 tab 07/27/20 (Pyridium) cephalexin 500 mg capsule (Keflex) 500 mg PO QID #40 cap 12/19/20 oxycodone 5 mg tablet 5 mg PO TID PRN #10 tab 12/19/20 ondansetron 4 mg disintegrating 4 mg PO Q8H PRN #10 tab 05/20/21 tablet Allergies Allergy/AdvReac Type Severity Reaction Status Date / Time No Known Drug Allergies Allergy Verified 04/19/19 12:07 Review of Systems Constitutional Constitutional: Denies chills, Denies fatigue, Denies fever(s), Reports headache(s), Denies lethargy and Denies weakness Eyes Eyes: Reports photophobia ENT Ears, Nose, Mouth, and Throat: Denies change in voice, Reports headache(s), Denies neck pain, Denies sore throat and Denies throat swelling Cardiovascular Cardiovascular: Denies chest pain, Denies irregular heart rhythm, Denies palpitations and Denies dyspnea Respiratory Respiratory: Denies cough, Denies dyspnea and Denies wheezing Gastrointestinal Gastrointestinal: Denies abdominal pain, Denies change in bowel habits, Denies diarrhea, Reports nausea and Denies vomiting Musculoskeletal Musculoskeletal: Denies neck pain Integumentary/Breasts Skin/Breast: Denies pruritus, Denies erythema, Denies rash and Denies wounds Neurologic Neurologic: Reports as per HPI, Denies confusion, Reports headache(s) and Denies weakness Psychiatric Psychiatric: Denies anxiety and Denies confusion Endocrine Endocrine: Denies fatigue, Denies flushing and Denies palpitations Hematologic/Lymphatic Hematologic/Lymphatic: Denies easy bruising Allergic/Immunologic Allergic/Immunologic: Denies urticaria, Denies throat swelling and Denies wheezing Patient History Medical History (Updated 05/20/21 @ 18:48 by Princess Askew DO) Migraine headache Surgical History Status post wisdom tooth extraction Social History Smoking Status: Current every day smoker Smoking Status: Current every day smoker tobacco type: vaping alcohol intake frequency: 0-2 drinks per day Substance Use Type: does not use Exam Initial Vital Signs Initial Vital Signs: Vital Signs Temperature 96.4 F L 05/20/21 07:25 Pulse Rate 74 05/20/21 07:25 Respiratory Rate 16 05/20/21 07:25 Blood Pressure 116/77 05/20/21 07:25 Pulse Oximetry 99 05/20/21 07:25 GENERAL: A 26-year-old female in sunglasses appears uncomfortable HEENT: Head atraumatic,EOMI, pupils reactive, face symmetric, no meningeal signs CARDIOVASCULAR: Regular rate and rhythm without murmurs, rubs or gallops. RESPIRATORY: Breath sounds equal bilaterally, no wheezes rales or rhonchi. ABDOMEN: Soft, nontender. Normoactive bowel sounds all 4 quadrants. No guarding or rebound. EXTREMITIES: Normal range of motion, no clubbing or edema. Neurovascularly intact NEUROLOGICAL: Alert and oriented x4.Normal gait and speech. Cranial nerves II through XII grossly intact. airport shuttle driver strength equal bilaterally sensation in lower extremities intact SKIN: Warm, dry, no laceration, no petechiae, no rashes or lesions. Scores NIH Stroke Scale Level of Conciousness: Alert, keenly responsive Ask month/age: Answers both questions correctly. Open/close eyes, close hand: Performs both tasks correctly Best gaze horizontal: Normal Visual alves: No visual loss Facial palsy: Normal symetrical movement Left arm drift: No drift for full 10 sec Right arm drift: No drift for full 10 sec Left leg drift: No drift for full 5 sec Right leg drift: No drift for full 5 sec Limb ataxia: Absent Sensory on face/arms/legs: Normal, no sensory loss Best language: No aphasia, normal Dysarthria: Normal Extinction or inattention: No abnormality Total NIH Stroke scale score: 0 Course Orders Ordered: Discontinued Medications Diphenhydramine HCl (Diphenhydramine 50 Mg/Ml Vial) 25 mg IV NOW ONE Stop: 05/20/21 07:50 Last Admin: 05/20/21 08:01 Dose: 25 mg Documented by: LEDY Sodium Chloride (Normal Saline 0.9%) 1,000 mls @ 1,000 mls/hr IV BOLUS ONE Stop: 05/20/21 10:54 Last Infusion: 05/20/21 10:03 Dose: 0 mls/hr Documented by: Admin: 05/20/21 10:00 Dose: 1,000 mls/hr Documented by: JACOB Ketorolac Tromethamine (Ketorolac 30 Mg/Ml Vial) 30 mg IV NOW ONE Stop: 05/20/21 07:50 Last Admin: 05/20/21 08:10 Dose: 30 mg Documented by: LEDY Prochlorperazine (Prochlorperazine 10 Mg/2 Ml Vial) 10 mg IV NOW ONE Stop: 05/20/21 07:50 Last Admin: 05/20/21 08:01 Dose: 10 mg Documented by: LEDY Vital Signs Vital signs: Vital Signs - 8 hr 05/20/21 07:25 05/20/21 08:00 05/20/21 08:01 Temperature 96.4 F L Pulse Rate 74 72 64 Respiratory Rate 16 14 Blood Pressure 116/77 104/66 104/66 Pulse Oximetry 99 99 05/20/21 09:00 05/20/21 09:39 Temperature Pulse Rate 69 65 Respiratory Rate 16 16 Blood Pressure 96/53 L 119/70 Pulse Oximetry 99 99 MDM - Headache MDM Narrative Medical decision making narrative: patient is sleeping. She is re-evaluated overall appears well she is feeling much better and would like to go home. She has no neurologic deficits. Sensitivity to light with history of headaches improved after migraine cocktail. At this time no imaging is indicated. Discharge Plan Departure Patient Disposition: Home Clinical Impression: Headache Instructions: DI for Headache Activity Restrictions/Additional Instructions: *You have been diagnosed with headache *What to do: increase fluid intake. I recommend to go home and rest and try to stay cool. *Continue to take medications as directed ibuprofen 800 mg every 8 hours if needed for [id number] pain Zofran 4 mg every 8 hours if needed for nausea or vomiting--> SENT TO [facility] *Follow up with your primary care provider in 2-3 days *Return to ER if you should have worsening headache, persistent vomiting, [or] any new, worsening or concerning symptoms Prescriptions: New ondansetron 4 mg tablet,disintegrating 4 mg PO Q8H PRN (Reason: nausea and vomiting) Qty: 10 RF: 0 No Action sulfamethoxazole-trimethoprim [Bactrim DS] 800-160 mg tablet 1 tab PO BID Qty: 10 RF: 0 phenazopyridine [Pyridium] 200 mg tablet 200 mg PO TID PRN (Reason: pain) Qty: 6 RF: 0 cephalexin [Keflex] 500 mg capsule 500 mg PO QID Qty: 40 RF: 0 oxycodone 5 mg tablet 5 mg PO TID PRN (Reason: pain) Qty: 10 RF: 0
--- NOTE | 2021-05-20 07:51 | PC.NURSE ---
describes pain behind eyes and in back of head. pt was in high temps yesterday.
[2021-05-20 08:00] VITALS: BP 104/66; PULSE 72; RESP 14; O2SAT 99
[2021-05-20 08:01] VITALS: BP 104/66; PULSE 64
[2021-05-20] MEDS: diphenhydrAMINE 50 MG/ML VIAL 25 MG IV (08:01)
[2021-05-20] MEDS: PROCHLORPERAZINE 10 MG/2 ML VIAL IV (08:01)
[2021-05-20] MEDS: KETOROLAC 30 MG/ML VIAL IV (08:10)
[2021-05-20 09:00] VITALS: BP 96/53; PULSE 69; RESP 16; O2SAT 99
[2021-05-20 09:39] VITALS: BP 119/70; PULSE 65; RESP 16; O2SAT 99
[2021-05-20] MEDS: SODIUM CHLORIDE 0.9% 1,000 ML 1000 ML IV (10:00)
== END 2021-05-20 10:02 | disposition home or self-care (01) ==
PROVIDERS: Emergency Provider Emergency Medicine
DX: R51.9 Headache, unspecified (principal); R11.0 Nausea
CPT/HCPCS: 96374; 96375; 99283; 99284; J0780; J1200; J1885

== ENCOUNTER → 2021-06-05 11:06 | Outpatient (CLI) | payer OTHER, SELFPAY ==
--- NOTE | 2021-06-05 11:07 | DI.MRI.S_ITS ---
PROCEDURE: MR KNEE LT WO CON INDICATIONS: Recurrent dislocation, unspecified knee TECHNIQUE: Noncontrast sagittal PD fast spin echo and T2 fast spin echo with fat saturation, sagittal 3-D FLASH with fat saturation; coronal T1 spin echo and PD fast spin echo with fat saturation, and axial PD fast spin echo with fat saturation through the knee. COMPARISON: None. FINDINGS: Image quality: Excellent. Menisci: The medial and lateral menisci demonstrate normal morphology and internal signal. The meniscal root ligaments appear intact. Cruciate ligaments: The anterior and posterior cruciate ligaments appear intact. Medial structures: The medial collateral ligament appears intact. The posterior oblique ligament, semimembranosus tendon insertions, oblique popliteal ligament, and meniscocapsular junction appear intact. Visualized portions of the pes anserinus tendons appear normal. No abnormal bursal fluid. Lateral structures: The lateral collateral ligament, long and short heads of the biceps femoris tendon appear intact. The popliteus tendon appears normal; the popliteofibular ligament appears intact. The posterosuperior and anteroinferior popliteomeniscal fascicles appear intact. The arcuate and fabellofibular ligaments appear intact, on either side of the lateral inferior geniculate artery. Iliotibial band appears normal. Anterior structures: The quadriceps and patellar tendons appear intact. Patellar alignment is normal. No femoral trochlear dysplasia or ventral trochlear prominence. No edema in the infrapatellar fat pad. Bones and cartilage: No bone marrow contusions or fractures. The cartilage of the medial and lateral femorotibial compartments appears normal in thickness. Very low-grade chondromalacia involving apex and lateral facet of patella cartilage is seen. Joint space: There is physiologic knee joint fluid. No Ray's cyst. Normal appearing synovial plicae are incidentally noted. IMPRESSION: 1. 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 No marrow edema. No fracture or dislocation. 2. Cruciate ligaments are intact. Medial and lateral collateral ligaments are intact. 3. No evidence of focal meniscal tear. Dictated by: Gurinder Vasquez M.D. on 06/05/2021 at 12:05 Approved by: Gurinder Vasquez M.D. on 06/05/2021 at 12:07
--- NOTE | 2021-06-05 11:07 | DI.MRI.S_ITS ---
PROCEDURE: MR KNEE RT WO CON INDICATIONS: Recurrent dislocation, unspecified knee TECHNIQUE: Noncontrast sagittal PD fast spin echo and T2 fast spin echo with fat saturation, sagittal 3-D FLASH with fat saturation; coronal T1 spin echo and PD fast spin echo with fat saturation, and axial PD fast spin echo with fat saturation through the knee. COMPARISON: [facility], MR, MR KNEE LT WO CON, 06/05/2021, 11:15. FINDINGS: Image quality: Excellent. Menisci: The medial and lateral menisci demonstrate normal morphology and internal signal. The meniscal root ligaments appear intact. Cruciate ligaments: The anterior and posterior cruciate ligaments appear intact. Medial structures: The medial collateral ligament appears intact. The posterior oblique ligament, semimembranosus tendon insertions, oblique popliteal ligament, and meniscocapsular junction appear intact. Visualized portions of the pes anserinus tendons appear normal. No abnormal bursal fluid. Lateral structures: The lateral collateral ligament, long and short heads of the biceps femoris tendon appear intact. The popliteus tendon appears normal; the popliteofibular ligament appears intact. The posterosuperior and anteroinferior popliteomeniscal fascicles appear intact. The arcuate and fabellofibular ligaments appear intact, on either side of the lateral inferior geniculate artery. Iliotibial band appears normal. Anterior structures: The quadriceps and patellar tendons appear intact. Patellar alignment is normal. No femoral trochlear dysplasia or ventral trochlear prominence. No edema in the infrapatellar fat pad. Bones and cartilage: Marrow edema involving posterior and lateral periphery of proximal tibia extending to posterior aspect of lateral tibial plateau is seen. No discrete fracture line is identified. No other area of abnormal marrow signal. The cartilage of the medial and lateral femorotibial compartments appears normal in thickness. 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 Joint space: There is physiologic knee joint fluid. No Ray's cyst. Normal appearing synovial plicae are incidentally noted. IMPRESSION: 1. Suggestion of bony contusion involving posterior and lateral periphery of proximal tibia extending to lateral tibial plateau. No fracture or dislocation. 2. 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 3. Cruciate ligaments are intact. 4. No evidence of focal meniscal tear. Dictated by: Gurinder Vasquez M.D. on 06/05/2021 at 12:08 Approved by: Gurinder Vasquez M.D. on 06/05/2021 at 13:09
== END ==
PROVIDERS: PCP Physician Assistant; Referring Provider Physician Assistant; Visit Provider Physician Assistant
DX: M24.469 Recurrent dislocation, unspecified knee (principal); M22.42 Chondromalacia patellae, left knee; M22.41 Chondromalacia patellae, right knee
CPT/HCPCS: 73721

== ENCOUNTER 2021-08-23 07:14 | Emergency (ER) | payer OTHER, SELFPAY ==
[2021-08-23 07:15] VITALS: BP 112/71; PULSE 90; RESP 16; TEMP 36.6; O2SAT 98; BMI 25.2
--- NOTE | 2021-08-23 07:29 | ED.HA ---
HPI - Headache General Chief Complaint: Headache Stated Complaint: Headache nausea since covid 2nd dose Time Seen by Provider: 08/23/21 07:21 Mode of arrival: Ambulatory Limitations: no limitations History of Present Illness HPI Narrative: Patient is a 26-year-old female who presents with headache. She has no past medical history. She received her 2nd COVID vaccination yesterday. She says after the 1st 1 she required 2 doses of Toradol at 2 separate visits for her headache. She is nauseous but no vomiting. She is sensitive to light. No numbness tingling or weakness. She did not attempt to take anything prior to arrival. Related Data Previous Rx's Medication Instructions Recorded ondansetron 4 mg disintegrating 4 mg PO Q8H PRN #10 tab 08/23/21 tablet Allergies Allergy/AdvReac Type Severity Reaction Status Date / Time No Known Drug Allergies Allergy Verified 04/19/19 12:07 Review of Systems Review of Systems Narrative: GENERAL: Denies chills, fatigue, malaise, fever, sweats, travel HEENT: Denies sinus pain, ear pain, sore throat, difficulty swallowing, neck pain RESPIRATORY: Denies dyspnea, cough, wheezing, hemoptysis, sputum. CARDIOVASCULAR: Denies chest pain, palpitations, orthopnea, edema GASTROINTESTINAL: Denies nausea, vomiting, abdominal pain, diarrhea, constipation, melena. : Denies dysuria, frequency, incontinence, hematuria, urinary retention, flank pain. MUSCULOSKELETAL: Denies weakness, joint pain, or bony pain SKIN: No rash, no erythema, no pruritus NEUROLOGIC: See HPI PSYCHIATRIC: No concerning psychosocial issues. 12 point review of systems is negative except for those stated above and HPI Patient History Medical History (Updated 08/23/21 @ 08:10 by Princess Askew DO) Migraine headache Surgical History Status post wisdom tooth extraction Social History Smoking Status: Current every day smoker Smoking Status: Current every day smoker tobacco type: vaping alcohol intake frequency: 0-2 drinks per day Substance Use Type: does not use Exam Initial Vital Signs Initial Vital Signs: Vital Signs Temperature 97.8 F 08/23/21 07:15 Pulse Rate 90 08/23/21 07:15 Respiratory Rate 16 08/23/21 07:15 Blood Pressure 112/71 08/23/21 07:15 Pulse Oximetry 98 08/23/21 07:15 GENERAL: Alert 26-year-old female wearing sunglasses HEENT: Head atraumatic,EOMI, pupils reactive, face symmetric, moist mucous membranes CARDIOVASCULAR: Regular rate and rhythm without murmurs, rubs or gallops. RESPIRATORY: Breath sounds equal bilaterally, no wheezes rales or rhonchi. ABDOMEN: Soft, nontender. Normoactive bowel sounds all 4 quadrants. No guarding or rebound. EXTREMITIES: Normal range of motion, no clubbing or edema. Neurovascularly intact NEUROLOGICAL: Alert and oriented x4.Normal gait and speech. Cranial nerves II through XII grossly intact. [employer] strength equal bilaterally SKIN: Warm, dry, no laceration, no petechiae, no rashes or lesions. Course Orders Ordered: Discontinued Medications Ketorolac Tromethamine (Ketorolac 30 Mg/Ml Vial) 30 mg IM NOW ONE Stop: 08/23/21 07:27 Last Admin: 08/23/21 07:36 Dose: 30 mg Documented by: Ondansetron HCl (Ondansetron 4 Mg Odt) 4 mg SL NOW ONE Stop: 08/23/21 07:27 Last Admin: 08/23/21 07:36 Dose: 4 mg Documented by: Vital Signs Vital signs: Vital Signs - 8 hr 08/23/21 07:15 08/23/21 08:15 Temperature 97.8 F Pulse Rate 90 90 Respiratory Rate 16 18 Blood Pressure 112/71 105/59 L Pulse Oximetry 98 96 MDM - Headache MDM Narrative Medical decision making narrative: Patient is sleeping. When she awakes she overall is feeling significantly better. Discussed home treatments. I have given her prescription for Zofran. She has no focal deficits. At this time likely a typical reaction from vaccination. Discharge Plan Departure Patient Disposition: Home Clinical Impression: Headache Instructions: DI for Headache Activity Restrictions/Additional Instructions: *You have been diagnosed with headache *What to do: At this time her go home and rest. You may continue to have headache body aches chills or even fever. These are all typical response is after vaccination. Increase fluids and take medication as directed *Continue to take medications as directed Zofran 4 mg every 8 hours if needed for nausea vomiting--> SENT TO [facility] [place] Tylenol 1000 mg every 6 hours if needed for brxj-zy-npuezfny pain Motrin 800 mg every 8 hours if needed for zysj-zm-cblgkabb pain--do not take until 3:30 p.m. *Follow up with your primary care provider in 2-3 days *Return to ER if you should have increasing headache persistent vomiting, numbness tingling or weakness any new, worsening or concerning symptoms Prescriptions: New ondansetron 4 mg tablet,disintegrating 4 mg PO Q8H PRN (Reason: nausea and vomiting) Qty: 10 RF: 0 Referrals: Bereket Brown PA-C [Primary Care Provider] -
[2021-08-23] MEDS: ONDANSETRON 4 MG ODT SL (07:36)
[2021-08-23] MEDS: KETOROLAC 30 MG/ML VIAL IM (07:36)
[2021-08-23 08:15] VITALS: BP 105/59; PULSE 90; RESP 18; O2SAT 96
== END 2021-08-23 08:16 | disposition home or self-care (01) ==
PROVIDERS: Emergency Provider Emergency Medicine; PCP Physician Assistant
DX: R51.9 Headache, unspecified (principal); R11.0 Nausea; T50.B95A Adverse effect of other viral vaccines, initial encounter
CPT/HCPCS: 96372; 99283; J1885

== ENCOUNTER 2024-09-24 19:43 | Emergency (ER) | payer OTHER, SELFPAY ==
[2024-09-24 19:47] VITALS: BP 129/78; PULSE 90; RESP 17; TEMP 36.7; O2SAT 99; BMI 22.7
--- NOTE | 2024-09-24 20:40 | ED_ITS ---
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 Funz-uha-yqlunzs ibuprofen is not helping with the pain. No prior lumbar procedures, injections, back pain problems. She is currently on her menstrual cycle, on time and normal. Related Data Previous Rx's Medication Instructions Recorded ondansetron 4 mg disintegrating 4 mg PO Q8H PRN nausea and 08/23/21 tablet vomiting #10 tabs hydrocodone 5 mg-acetaminophen 325 1 tab PO Q6H PRN pain #14 tabs 09/24/24 mg tablet hydrocodone 5 mg-acetaminophen 325 1 tab PO Q6H PRN pain #14 tabs 09/24/24 mg tablet methocarbamol 500 mg tablet 500 mg PO TID 7 days #21 tabs 09/24/24 Allergies Allergy/AdvReac Type Severity Reaction Status Date / Time No Known Drug Allergies Allergy Verified 09/24/24 19:47 Review of Systems Review of Systems Narrative: see HPI Patient History Medical History (Updated 09/24/24 @ 22:06 by Ritesh Riddle MD) Migraine headache Surgical History Status post wisdom tooth extraction Social History Smoking Status: Current every day smoker Smoking Status: Current every day smoker tobacco type: vaping alcohol intake frequency: 0-2 drinks per day Substance Use Type: does not use Exam Narrative Exam Narrative: GENERAL: Well-developed patient, in mild distress. HEAD: Atraumatic. Normocephalic. EYES: Pupils equal round and reactive. Extraocular motions intact. No scleral icterus. No injection or drainage. ENT: Nose without bleeding, purulent drainage. Throat without erythema, tonsillar hypertrophy or exudate. Airway patent. NECK: Trachea midline. Non tender CARDIOVASCULAR: Regular rate and rhythm without murmurs, gallops, or rubs. RESPIRATORY: Clear to auscultation. Breath sounds equal bilaterally. No wheezes, rales, or rhonchi. GASTROINTESTINAL: Abdomen soft, non-tender, nondistended. EXTREMITIES: No edema or joint tenderness. BACK: Some tenderness low mid lumbar paraspinal right and left, some muscle spasm, mild left midline tenderness, no step-off, no skin changes or bruising. NEURO: AOx3. Motor functions grossly nonfocal. Straight leg raise right and left 60? without low back discomfort or leg discomfort SKIN: No rash or erythema of visible areas Initial Vital Signs Initial Vital Signs: Vital Signs Temperature 98.0 F 09/24/24 19:47 Pulse Rate 90 09/24/24 19:47 Respiratory Rate 17 09/24/24 19:47 Blood Pressure 129/78 09/24/24 19:47 Pulse Oximetry 99 09/24/24 19:47 Oxygen Delivery Method Room Air 09/24/24 19:47 Course Orders Ordered: ED Orders 09/24/24 21:01 XR lumbar spine 2-3V Stat 09/24/24 21:48 Urine Culture Stat Urine Microscopic Stat Discontinued Medications Hydrocodone Bitart/Acetaminophen (Hydrocodone/Acet 5/325 Tablet) 1 tab PO NOW ONE Stop: 09/24/24 21:01 Last Admin: 09/24/24 21:04 Dose: 1 tab Documented By: ROBB Methocarbamol (Methocarbamol 500 Mg Tablet) 500 mg PO NOW ONE Stop: 09/24/24 21:01 Last Admin: 09/24/24 21:04 Dose: 500 mg Documented By: ROBB Vital Signs Vital signs: Vital Signs - 8 hr 09/24/24 19:47 09/24/24 22:07 Temperature 98.0 F Pulse Rate 90 76 Respiratory Rate 17 20 Blood Pressure 129/78 103/55 L Pulse Oximetry 99 100 Oxygen Delivery Method Room Air Room Air MDM - Back Pain/Injury Lab Data Labs: Lab Results 09/24/24 Range/Units 21:48 Urine RBC 10-30/hpf H (0-5/HPF) Urine WBC 1-5/hpf (0-5/HPF) Ur Squamous Epith Cells 1-5 /hpf (0-5/HPF) Urine Bacteria Occasional (0-1) (None) Ur Culture Indicated? Specimen cultured Vol Urine Centrifuged 10ml (spun) Point of Care Testing Test Results Negative Urine Dip Bedside Urine Glucose Negative Bedside Urine Bilirubin - Negative Bedside Urine Ketone - Negative Urine Specific Bowie 1.015 Bedside Urine Occult Blood +++ Bedside Urine pH 6.0 Bedside Urine Protein +/- 15 Bedside Urine Urobilinogen - Negative Bedside Urine Nitrite - Negative Bedside Urine Leukocytes ++ 125 Esterase Imaging Data Lumbar spine x-ray series: Radiologist's Impression: Close Lumbar Spine X-Ray (Signed) Jonhson Brandon - 09/24/24 Launch?[address] [address] XRay Report Signed Patient: Kira Vigil MR#: [id number] : 1995 Acct:[id number] Age/Sex: 29 / F Date of Service: 09/24/24 Loc: ED Accession Number: [id number] Procedure: XR lumbar spine 2-3V Ordering Provider: Ritesh Riddle MD PROCEDURE: XR LUMBAR SPINE 2-3V INDICATIONS: LBP after pulling twist, then later GLF TECHNIQUE: 3 views of the lumbar spine were acquired. COMPARISON: None. FINDINGS: Bones: 5 kob-lpc-hkkurho vertebrae are present. There is normal bony alignment. No vertebral body compression fractures. No suspicious bony lesions. Soft tissues: Overlying bowel gas pattern is normal. No suspicious soft tissue calcifications. IMPRESSION: No acute bony abnormality. Dictated by: Johnson Brandon M.D. on 09/24/2024 at 21:29 Approved by: Johnson Brandon M.D. on 09/24/2024 at 21:29 [facility] Narrative Medical decision making narrative: 29-year-old with lumbar strain symptoms 5 days ago, then ground level fall during training exercise 3 days ago, increasing low back pain. No saddle anesthesia, no weakness, strike leg raise reassuring. Low lumbar paraspinal muscle tenderness. Mild midline mid low lumbar tenderness without step-off or crepitance. Urine test negative, urine dip negative. We discussed imaging, patient does not want CT imaging at this time, but would like imaging screening, x-ray series lumbar spine requested. Declines injected pain medication. Oral Robaxin, oral hydrocodone. Lumbar x-ray series unremarkable, see radiology report. Symptoms improved with oral opiate and muscle relaxant. Home pack hydrocodone/A PAP dispensed. Prescription sent for further hydrocodone/APAP, and for further Robaxin/methocarbamol muscle relaxant. Advised off work in the next couple of days. Recheck with [facility] Thursday09/26/2024. Continue taking hjtf-oae-yovbbmb ibuprofen. Activity as tolerated, but avoid bending and lifting. Home with family. Return precautions discussed Discharge Plan Departure Patient Disposition: Home Clinical Impression: Lumbar strain Activity Restrictions/Additional Instructions: Low back injury from crowbar bending over activity, then likely exacerbated by subsequent ground level fall 2 days later, ongoing low back pain not responsive to bksb-hdq-wnrzwmq pain medications. Plain x-rays of the lumbar spine series were done, no gross bony abnormality or malalignment, no lesions. There is no visualization with this modality however of the discs and other soft tissue structures, which can be injured or strained or bulging. For now trial of medicines seems reasonable, perhaps also with physical therapy measures if they are accessible to. Trial of continued sswr-tkw-dlegpuj ibuprofen. Prescription hydrocodone pain control to use if needed. Prescription Robaxin/methocarbamol muscle relaxant to use if needed for muscle spasm component of discomfort. Recheck with your regular provider Thursday/Thursday, to coordinate physical therapy and further assessment of your back pain, to see if increased activity is reasonable at that time. Do activities as tolerated until then, but advised off work for the next couple of days until re-evaluated Thursday/Thursday in your follow up clinic setting. Return earlier to this/nearest emergency department for any change worsening symptoms or any concerns prior Prescriptions: New methocarbamol 500 mg tablet 500 mg PO TID 7 Days Qty: 21 0RF hydrocodone-acetaminophen 5-325 mg tablet 1 tab PO Q6H PRN (Reason: pain) Qty: 14 0RF hydrocodone-acetaminophen 5-325 mg tablet 1 tab PO Q6H PRN (Reason: pain) Qty: 14 0RF No Action ondansetron 4 mg tablet,disintegrating 4 mg PO Q8H PRN (Reason: nausea and vomiting) Qty: 10 0RF Referrals: Bereket Brown PA-C [Primary Care Provider] - Stand Alone Forms: Patient Portal/API/Survey
--- NOTE | 2024-09-24 21:01 | DI.RAD.S_ITS ---
PROCEDURE: XR LUMBAR SPINE 2-3V INDICATIONS: LBP after pulling twist, then later GLF TECHNIQUE: 3 views of the lumbar spine were acquired. COMPARISON: None. FINDINGS: Bones: 5 tor-dsl-idldcjl vertebrae are present. There is normal bony alignment. No vertebral body compression fractures. No suspicious bony lesions. Soft tissues: Overlying bowel gas pattern is normal. No suspicious soft tissue calcifications. IMPRESSION: No acute bony abnormality. Dictated by: Johnson Brandon M.D. on 09/24/2024 at 21:29 Approved by: Johnson Brandon M.D. on 09/24/2024 at 21:29
[2024-09-24] MEDS: methocarbamoL 500 MG TABLET PO (21:04)
[2024-09-24] MEDS: HYDROCODONE/ACET 5/325 TABLET 1 TAB PO (21:04)
[2024-09-24 22:07] VITALS: BP 103/55; PULSE 76; RESP 20; O2SAT 100
[2024-09-24 22:11] LABS: Bacteria Urine Occasional (0-1); Culture Indicated Urine Specimen Cultured; RBC Urine 10-30/HPF (0-5/HPF); Squamous Epithelial Cell Urine 1-5 /HPF (0-5/HPF); Urine Volume 10mL (spun); WBC Urine 1-5/HPF (0-5/HPF)
== END 2024-09-24 22:15 | disposition home or self-care (01) ==
PROVIDERS: Emergency Provider Emergency Medicine; PCP Physician Assistant
DX: S39.012A Strain of muscle, fascia and tendon of lower back, initial encounter (principal); W01.0XXA Fall on same level from slipping, tripping and stumbling without subsequent striking against object, initial encounter
CPT/HCPCS: 72100; 81003; 81015; 81025; 87086; 99283

== ENCOUNTER → 2024-09-27 12:15 | Outpatient (CLI) | payer OTHER, SELFPAY ==
--- NOTE | 2024-09-27 12:17 | DI.MRI.S_ITS ---
PROCEDURE: MR LUMBAR SPINE WO CON INDICATIONS: Low back pain, unspecified TECHNIQUE: Noncontrast sagittal T1 spin echo and T2 fast echo, sagittal STIR, and T2 fast spin echo through the lumbar spine. In cases with scoliosis, additional coronal T2 fast spin echo may be performed. COMPARISON: [facility], CR, XR LUMBAR SPINE 2-3V, 09/24/2024, 21:06. FINDINGS: Image quality: Excellent. Alignment and Curvature: There is normal bony alignment. There are 6 non rib-bearing lumbar vertebral bodies. For the purposes of this dictation, the highest of these vertebral bodies will be labeled as T12. Bone Marrow: Marrow is of normal overall signal. No acute vertebral body compression fractures. Spinal Cord: Conus medullaris terminates at the T12-L1 level. Visualized cord demonstrates normal signal and size. Paraspinous Soft Tissues: No paravertebral masses. T12-L1: Normal appearance. L1-L2: Normal appearance. L2-L3: Normal appearance. L3-L4: Mild disc bulge. No canal stenosis or foraminal stenosis. L4-L5: Disc bulge. Early facet hypertrophy. No canal stenosis or foraminal stenosis. L5-S1: Diffuse disc bulge with minimal superimposed central posterior disc protrusion. Disc material abuts but does not displace the bilateral S1 nerve root sleeves in the lateral recesses. No canal stenosis or foraminal stenosis. IMPRESSION: 1. There are 6 non rib-bearing lumbar vertebral bodies. For the purposes of this dictation, the highest of these is described as T12, and is assumed to have hypoplastic ribs. If surgery is planned in this patient, careful correlation for correct surgical level is required. 2. No canal stenosis or foraminal stenosis. 3. At L5-S1, disc bulge with minimal superimposed central posterior disc protrusion abuts but does not displace the bilateral S1 nerve root sleeves in the lateral recesses. 4. Early facet hypertrophy at L4-L5. Dictated by: Daniel Juarez M.D. on 09/27/2024 at 18:08 Approved by: Daniel Juarez M.D. on 09/27/2024 at 18:18
== END ==
LOC: MRI 12:16
PROVIDERS: Referring Provider Nurse Practitioner Family; Visit Provider Nurse Practitioner Family
DX: M51.360 Other intervertebral disc degeneration, lumbar region with discogenic back pain only (principal); M51.370 Other intervertebral disc degeneration, lumbosacral region with discogenic back pain only; M47.816 Spondylosis without myelopathy or radiculopathy, lumbar region
CPT/HCPCS: 72148